=== PATIENT | female | born 1975 | race Caucasian/White ===

== ENCOUNTER 2019-07-19 15:07 | Emergency (ER) | payer BC ==
[~2019-07-19] VITALS: Ht 172.7 cm; Wt 68.2 kg
[2019-07-19 15:54] LABS: COLLECTION METHOD CLEAN CATCH
[2019-07-19 16:06] LABS: PH 6 (5-8); SQUAMOUS EPITHELIAL 0-2 /hpf; URINE APPEARANCE Clear; URINE BACTERIA Occasional /hpf; URINE BILIRUBIN Negative (NEGATIVE); URINE BLOOD Negative (NEGATIVE); URINE COLOR Straw; URINE GLUCOSE Negative (NEGATIVE); URINE KETONE Trace (NEGATIVE); URINE LEUKOCYTE ESTERASE Negative (NEGATIVE); URINE NITRATE Negative (NEGATIVE); URINE PROTEIN(semi-quant) Negative (NEGATIVE); URINE RBC None Seen /hpf; URINE UROBILINOGEN Negative (NEGATIVE)
[2019-07-19 16:39] LABS: BASO % 0.4 % (0.0-2.0); EOS # 0.2 (0.0-0.7); EOS % 2.8 % (0-4.0); GRAN # 4.7 (1.4-6.5); GRAN % 56.6 % (42.2-75.2); HEMATOCRIT 39.3 % (37.0-47.0); HEMOGLOBIN 13.5 g/dl (12.5-16.0); LYMPH # 2.5 (1.2-3.4); LYMPH % 30.3 % (20.0-51.0); MEAN CELL VOLUME 95 fl (80.0-100.0); MEAN CORPUSCULAR HEMOGLOBIN 33 pg (27.0-31.0); MEAN CORPUSCULAR HGB CONC 34 g/dl (33.0-37.0); MEAN PLATELET VOLUME 8.5 fl (7.4-10.4); MONO # 0.8 (0.1-0.6); MONO % 9.7 % (1.7-9.3); PLATELET COUNT 293 K/mm3 (130-400); RED BLOOD COUNT 4.12 M/mm3 (4.10-5.30); REDCELL DISTRIBUTION WIDTH-CV 11.9 % (11.5-14.5)
[2019-07-19 16:57] LABS: ALANINE AMINOTRANSFERASE 24 U/L (4-34); ALBUMIN 4.2 gm/dL (3.5-5.0); ALKALINE PHOSPHATASE 70 U/L (50-136); ANION GAP 7 mmol/L (7-16); AST,SGOT 63 U/L (15-37); BILIRUBIN,TOTAL 0.6 mg/dL (0.0-1.0); BLOOD UREA NITROGEN 7 mg/dL (7-17); CALCIUM 9.3 mg/dL (8.4-10.2); CARBON DIOXIDE 22 mmol/L (22-30); CHLORIDE 102 mmol/L (98-107); CREATININE, serum 0.41 (0.52-1.25); GLUCOSE 80 mg/dL (74-106); POTASSIUM 3.8 mmol/L (3.4-5.0); SODIUM 130 mmol/L (137-145); TOTAL PROTEIN 6.8 gm/dL (6.4-8.2)
[2019-07-19 17:03] LABS: C-REACTIVE PROTEIN < 0.5 mg/dL (0.0-0.9)
[2019-07-19 17:07] LABS: ERYTHROCYTE SEDIMENTATION RATE 1 mm/hr (0-20)
[2019-07-19] MEDS ORDERED: AMBIEN 5MG TABLE5 MG PO (17:47)
[2019-07-19] MEDS ORDERED: PAXIL 20MG20 MG PO (17:47)
[2019-07-19 18:53] VITALS: BP 124/67; PULSE 88; TEMP 98.5
--- NOTE | 2019-07-20 10:13 | NUR ---
structural steel trades worker collaborated with [employer], [place], and then called the patient to assist with resources, per patient request. Patient is open and shared her struggles and plans with social work program coordinator. Patient states she has been in contact with spouse and her son (who reside in [place], [place]) and gave them information on where carpet cleaning products were. Patient states that spouse is supportive and "loves her and won't come find her" and that she does not fear that he will come after her. Patient states she is staying at a [place] bed [facility] breakfast with a friend, [place]es[place] and will drive to [place] tomorrow and stay with a woman she feels has been like a mother to her. Worker was placed on speaker phone, at times, while talking with patient. Per patient's request, worker provided written information on the [facility] and the [facility]. Worker provided verbal information on the above programs as well. Patient states she has a dog that is being treated at a local animal hospital and that she has 12 weeks of FMLA to take now and is going to find "peace". Patient states she has an appointment with a bread pan greaser today and wants to find a "spiritual retreat". Worker encouraged patient to seek out legal advise regarding questions about money, penitentiary and selling her vehicle. Patient states she agrees with needing legal internship and will contact her brother in law, who is an insurance defense attorney.
[2019-07-22] MEDS ORDERED: PROAIR HFA0.09 MG/AC IH (01:41)
== END 2019-07-19 20:30 | disposition home or self-care (01) ==
LOC: COL.ER 15:07
PROVIDERS: Emergency Medicine
DX: R53.81 Other malaise (principal); G47.00 Insomnia, unspecified